=== PATIENT | female | born 1940 | race Asian ===

== ENCOUNTER 2019-08-11 20:07 | Inpatient (IN) | payer MEDICARE, OTHER ==
[~2019-08-11] VITALS: Ht 154.9 cm; Wt 72.1 kg
[2019-08-11 23:10] VITALS: BP 132/98
--- NOTE | 2019-08-11 23:10 | NUR ---
TELE/RN NOTES RECEIVED PT. FROM [facility] VIA [facility]. PT. IS AWAKE, NON-VERBAL OPENS EYES. PT. IS BREATHING EVEN AND UNLABORED ON 3LPM O2 VIA NC. NO SOB, RESPIRATORY DISTRESS OR COMPLAINTS OF PAIN NOTED AT THIS TIME. PT. WITH RIGHT HAND 2ND FINGER 22 GAUGE PERIPHERAL IV PRESENT, PATENT AND INTACT ADMINISTERING TO PT. 1L BOLUS NS FROM [facility]. PT. WITH FAMILY MEMBERS PRESENT AT BEDSIDE. BED LOCKED AND IN LOWEST POSITION, SIDE RAILS UP X3, BED ALARM ON, WILL NOTIFY [facility] CECY SALDANA ABOUT PT. ARRIVAL AND AWAITING ADMITTING ORDERS. WILL CONTINUE TO MONITOR.
[2019-08-12] MEDS ORDERED: HYDROCODONE/APAP 5/325MG 1 EACH TABLET PO PRN
[2019-08-12] MEDS ORDERED: Z GUARD REMEDY 2 OZ OINT TP PRN
[2019-08-12] MEDS ORDERED: ACETAMINOPHEN 325 MG TABLET PO PRN
[2019-08-12] MEDS ORDERED: ZOLPIDEM TARTRATE 5 MG TABLET PO PRN
[2019-08-12] MEDS ORDERED: ONDANSETRON HCL/PF 4 MG/2 ML VIAL IVP PRN
[2019-08-12] MEDS ORDERED: MAGNESIUM HYDROXIDE 30 ML UDC PO PRN
[2019-08-12 00:31] LABS: SERUM AMMONIA 10 umol/L (11-32)
--- NOTE | 2019-08-12 00:40 | NUR ---
TELE/RN NOTES ORDER FOR XRAY ABDOMEN VIEW KUB WITH GASTROFIN ORDERED. OBTAINED TELEPHONE CONSENT BY CATHY (PT. DAUGHTER) WITNESSED BY SAVANA WRIGHT.
[2019-08-12] MEDS ORDERED: IOHEXOL-350 100 ML VIAL IV ONE (01:01)
[2019-08-12] MEDS ORDERED: CT SWABBABLE VALVE TRANS SET 1 EA INFUS.SET MC ONE (01:01)
[2019-08-12] MEDS: IV NS 0.9% 1,000 ML IV PRN ×2 (03:11→17:59)
[2019-08-12] MEDS ORDERED: LEVETIRACETAM (500MG) 500 MG in IV NS 0.9% 100 ML IV SCH (03:30)
[2019-08-12 03:52] LABS: BASOPHILS % (AUTO) 0.1 % (0.0-2.0); EOSINOPHILS % (AUTO) 1.5 % (0.0-6.0); HEMATOCRIT 29 % (33-45); HEMOGLOBIN 9.3 g/dL (11.5-14.8); LYMPHOCYTES # (AUTO) 1.2 /CMM (0.8-4.8); MEAN CORPUSCULAR HGB CONC 32 g/dl (31.0-36.0); MEAN CORPUSCULAR VOLUME 89 fL (82-100); MONOCYTES # (AUTO) 1.1 /CMM (0.1-1.30); MONOCYTES % (AUTO) 10.5 % (2.0-12.0); NEUTROPHILS # (AUTO) 7.7 /CMM (1.8-8.9); NEUTROPHILS % (AUTO) 75.9 % (43.0-81.0); PLATELET COUNT (AUTO) 264 /CMM (150-450); RED BLOOD CELL COUNT(AUTO) 3.29 MIL/uL (4.0-5.2); WHITE BLOOD COUNT (AUTO) 10.2 K/uL (4.3-11.0)
--- NOTE | 2019-08-12 04:00 | NUR ---
TELE/RN NOTES CALLED SOCIAL INSURANCE ADMINISTRATOR TO OBTAIN KEPPRA MEDICATION ORDERED, UNABLE TO GET MEDICATION AT THIS TIME. WILL FOLLOW UP AND ADMINISTER MEDICATION WHEN AVAILABLE. WILL CONTINUE TO MONITOR.
[2019-08-12 04:05] LABS: CHOLESTEROL 166 mg/dL (<200); HDL CHOLESTEROL 54 mg/dL (40-60); LDL 101 mg/dL (0-99); TRIGLYCERIDES 89 mg/dL (30-150)
[2019-08-12 04:06] LABS: BILIRUBIN,DIRECT 0.1 mg/dL (0.0-0.2); BILIRUBIN,TOTAL 0.2 mg/dL (0.2-1.0)
[2019-08-12 04:13] LABS: CALCIUM, SERUM 8.7 mg/dL (8.5-10.1); CARBON DIOXIDE 29 mmol/L (21-32); CHLORIDE 109 mmol/L (98-107); CREATININE 0.5 mg/dL (0.6-1.3); GLUCOSE 109 mg/dL (74-106); PHOSPHORUS 4.2 mg/dL (2.5-4.9); POTASSIUM 3.9 mmol/L (3.5-5.1); SODIUM SERUM 147 mmol/L (136-145); UREA NITROGEN, BLOOD 22 mg/dL (7-18)
[2019-08-12 04:34] LABS: APPEARANCE,URINE CLEAR (CLEAR); BILIRUBIN,URINE NEGATIVE (NEGATIVE); BLOOD, URINE NEGATIVE Ery/uL (NEGATIVE); COLOR,URINE YELLOW (YELLOW); KETONES,URINE NEGATIVE (NEGATIVE); LEUKOCYTE ESTERASE ,URINE NEGATIVE (NEGATIVE); NITRITE, URINE NEGATIVE (NEGATIVE); PROTEIN,URINE NEGATIVE (NEGATIVE); UGLUCOSE NEGATIVE (NEGATIVE); UROBILINOGEN,URINE 0.2 EU/dL (0.2)
[2019-08-12] MEDS ORDERED: LEVETIRACETAM (500MG) 500 MG/5 ML VIAL IV ONE (05:09)
--- NOTE | 2019-08-12 06:22 | NUR ---
TELE/RN NOTES PT. IS LYING IN BED RESTING. PT. IS BREATHING EVEN AND UNLABORED ON 3LPM O2 VIA NC. NO SOB, RESPIRATORY DISTRESS OR COMPLAINTS OF PAIN NOTED AT THIS TIME. PT. WITH RIGHT HAND 2ND FINGER 22 GAUGE PERIPHERAL IV PRESENT, PATENT AND INTACT ADMINISTERING TO PT. 75 ML/HR. PT. WITH EXTERNAL STEEL SPAR OPERATOR PRESENT AND INTACT. CURRENT RHYTHM = SINUS TACHYCARDIA HR 101. ALL PT. NEEDS MET. PT. OFFLOADED, TURNED AND REPOSITIONED Q2H AND NEEDED. ASPIRATION, SAFETY AND SEIZURE PRECAUTIONS IMPLEMENTED AND IN PLACE. BED LOCKED AND IN LOWEST POSITION, SIDE RAILS UP X3, BED ALARM ON. WILL ENDORSE TO DAYSHIFT NURSE FOR CONTINUITY OF CARE.
--- NOTE | 2019-08-12 07:38 | NUR ---
RED HAT OPEN STACK ADMINISTRATOR OPENING NOTE PATIENT IN BED RESTING COMFORTABLY. PATIENT IN NO ACUTE DISTRESS. NO SOB NOTED. PATIENT BREATHING IS EVEN AND UNLABORED. PATIENT ON CARDIAC MONITORING READING SINUS TACHYCARDIA HR 103. HOB IS ELEVATED. SEIZURE PRECAUTIONS IN PLACE. PATIENT BED ALARM IS ON. PATIENT BED IS LOCKED AND IN LOWEST POSITION. CALL LIGHT WITHIN REACH. WILL CONTINUE TO MONITOR.
[2019-08-12 08:00] VITALS: BP 127/75
[2019-08-12] MEDS ORDERED: LACO200T2 PO (09:22)
[2019-08-12] MEDS ORDERED: INSU100V39 SQ (09:22)
[2019-08-12] MEDS ORDERED: METH10TA7 PO (09:22)
[2019-08-12] MEDS ORDERED: BISA10SU61 RC (09:22)
[2019-08-12] MEDS ORDERED: LORA-259 GT (09:22)
[2019-08-12] MEDS ORDERED: MULT-439 PO (09:22)
[2019-08-12] MEDS ORDERED: PHEN100C4 GT ×2 (09:22)
[2019-08-12] MEDS ORDERED: FURO-145 PO (09:22)
[2019-08-12] MEDS ORDERED: CLON0.1T GT (09:22)
[2019-08-12] MEDS ORDERED: MAGN400T26 GT (09:22)
[2019-08-12] MEDS ORDERED: SENN-18 GT (09:22)
[2019-08-12] MEDS ORDERED: ATOR10TA GT (09:22)
[2019-08-12] MEDS ORDERED: LEVE500T20 GT (09:22)
[2019-08-12] MEDS ORDERED: NA P133E RC (09:22)
[2019-08-12] MEDS ORDERED: IPRA0.2S49 IH (09:22)
[2019-08-12] MEDS ORDERED: MAGN400O6 GT (09:22)
[2019-08-12] MEDS ORDERED: ACET-868 PO (09:22)
[2019-08-12] MEDS ORDERED: DOCU-141 GT (09:22)
[2019-08-12] MEDS ORDERED: ONDA4TAB5 GT (09:22)
[2019-08-12] MEDS ORDERED: METO25TA6 GT (09:22)
--- NOTE | 2019-08-12 09:55 | NUR ---
TALENT DEVELOPMENT COORDINATOR NOTE SPOKE WITH DR. PIZANO, ORDERS FOR DVT PUMPS TO BE PLACED.
--- NOTE | 2019-08-12 11:45 | NUR ---
WOUND CARE CONSULT: PT PRESENTS WITH WOUND TO LEFT EAR, LEAKING G TUBE SITE, RT EAR INTACT DEEP TISSUE INJURY AND SACRAL SCARRING, ALL PRESENT ON ADMISSION. RECOMMEND SURGICAL CONSULT. DR WHITMAN NOTIFIED OF CONSULT REQUEST. WILL SEE PRN. DISCUSSED SKIN PROTECTION WITH NURSING STAFF. PT ON TIFFANIE ISOFLEX LOW AIRLOSS BED. WILL SEE PRN. IN AGREEMENT WITH PLAN OF CARE. CURRENT AINSLEY SCORE IS 12. Addendum: 08/12/19 at 1146 by NIKO CARSON WNDNU Amended: Links added.
[2019-08-12] MEDS: CEFTRIAXONE 1 G in IV D5W 50 ML IV SCH (13:08)
--- NOTE | 2019-08-12 13:36 | NUR ---
MS RN NOTE SPOKE WITH DR. PIZANO REGARDING ABNORMAL CT HEAD RESULTS. PER DR. PIZANO CONTACT DR. GOODE FOR CONSULTATION. SPOKE WITH DR. GOODE AND DR. PIZANO REGARDING PATIENT STATUS. PER DR. PIZANO CONTACT NEUROSURGEON AND FOLLOW UP. PER DR. PIZANO WILL CONTINUE HOME MEDS.
--- NOTE | 2019-08-12 13:54 | NUR ---
MS RN NOTE SPOKE WITH DR. ALISSA MAXWELL REGARDING PATIENT STATUS AND TO SPEAK AND FOLLOW UP WITH DR. PIZANO FOR FURTHER PLAN OF CARE.
[2019-08-12] MEDS ORDERED: PHENYTOIN SUSP UDC 100 MG/4 ML UDC GT SCH ×2 (15:00→18:00)
--- NOTE | 2019-08-12 15:33 | NUR ---
MS RN NOTE SPOKE WITH DR. PIZANO REGARDING PATIENT PEG TUBE LEAKING. MD WAS AWARE OF LEAKING PRIOR. PER MD ORDER TO HAVE PATIENT PEG TUBE REMAIN NPO STATUS AND MONITOR. KEEP SEIZURE MEDICATIONS IV ROUTE AT THIS TIME.
--- NOTE | 2019-08-12 15:45 | NUR ---
MS RN NOTE SPOKE WITH DR. PIZANO REGARDING PATIENT GOING TO MRI. PER HARINDER NO NEED TO CONTACT HIM FOR RESULTS, STATED HE WILL FOLLOW UP.
[2019-08-12] MEDS ORDERED: FEE PK DOSING 1 MIN EA MC ONE (15:47)
[2019-08-12 16:00] VITALS: BP 134/74
[2019-08-12] MEDS: HYDROGEL DRESSING 90 GM TUBE TP SCH (16:15)
[2019-08-12] MEDS ORDERED: LACOSAMIDE ORAL SOLN 50 MG/5 ML UDC PO SCH (17:00)
[2019-08-12] MEDS: LEVETIRACETAM (500MG) 500 MG in IV NS 0.9% 100 ML IV SCH (17:08)
[2019-08-12] MEDS: DEXAMETHASONE SOD PHOSPHATE 10 MG/ML VIAL IV SCH (17:10)
[2019-08-12] MEDS ORDERED: GADOTERIDOL 279.3 MG/ML VIAL IV ONE (18:04)
--- NOTE | 2019-08-12 18:40 | NUR ---
MS RN CLOSING NOTE PATIENT IN BED RESTING COMFORTABLY. PATIENT IN NO ACUTE DISTRESS. NO SOB NOTED. PATIENT BREATHING IS EVEN AND UNLABORED. PATIENT PEG TUBE KEPT CLEAN AND DRY. WOUND CARE PERFORMED ORDERED. PATIENT TURNED AND REPOSITIONED Q2H. PATIENT EXTREMITIES OFFLOADED ON PILLOWS. PATIENT KEPT CLEAN AND DRY THROUGHOUT SHIFT. HOB IS ELEVATED. BED ALARM IS ON. PATIENT BED IS LOCKED AND IN LOWEST POSITION. CALL LIGHT WITHIN REACH. WILL ENDORSE CARE TO PM SHIFT FOR RAMIN.
--- NOTE | 2019-08-12 19:07 | NUR ---
MS/RN NOTES RECEIVED PT. LYING IN BED WITH EYES OPEN. PT. IS NON-VERBAL. BREATHING EVEN AND UNLABORED ON 3LPM O2 VIA NC. NO SOB, RESPIRATORY DISTRESS OR S/S OF PAIN NOTED AT THIS TIME. PT. WITH RIGHT HAND 2ND FINGER 22 GAUGE PERIPHERAL IV PRESENT, PATENT AND INTACT ADMINISTERING TO PT. NS @ 75 ML/HR. PT. WITH G-TUBE PRESENT AND INTACT, KEPT CLEAN AND DRY. PT. WITH VALLEJO CATHETER PRESENT, PATENT AND INTACT. SEIZURE AND SAFETY PRECAUTIONS IMPLEMENTED AND IN PLACE. BED LOCKED AND IN LOWEST POSITION, SIDE RAILS UP X3, BED ALARM ON, WILL CONTINUE TO MONITOR.
[2019-08-12 20:00] VITALS: BP 138/85
[2019-08-12] MEDS: LACOSAMIDE 200 MG in IV NS 0.9% 50 ML IV SCH (21:11)
[2019-08-13] MEDS: DEXAMETHASONE SOD PHOSPHATE 10 MG/ML VIAL IV SCH ×4 (00:42→18:52)
--- NOTE | 2019-08-13 06:13 | NUR ---
MS/RN NOTES PT. IS LYING IN BED RESTING. BREATHING EVEN AND UNLABORED ON 3LPM O2 VIA NC. NO SOB, RESPIRATORY DISTRESS OR S/S OF PAIN NOTED AT THIS TIME AND THROUGHOUT SHIFT. NO SEIZURES NOTED THROUGHOUT SHIFT. PT. WITH RIGHT HAND 2ND FINGER 22 GAUGE PERIPHERAL IV PRESENT, PATENT AND INTACT ADMINISTERING TO PT. NS @ 75 ML/HR. PT. WITH G-TUBE PRESENT AND INTACT, KEPT CLEAN AND DRY. PT. WITH VALLEJO CATHETER PRESENT, PATENT AND INTACT. ALL PT. NEEDS MET. PT. OFFLOADED, TURNED AND REPOSITIONED Q2H AND NEEDED. SEIZURE AND SAFETY PRECAUTIONS IMPLEMENTED AND IN PLACE. BED LOCKED AND IN LOWEST POSITION, SIDE RAILS UP X3, BED ALARM ON, WILL ENDORSE TO DAYSHIFT NURSE FOR CONTINUITY OF CARE.
[2019-08-13] MEDS: LEVETIRACETAM (500MG) 500 MG in IV NS 0.9% 100 ML IV SCH ×2 (06:28→18:52)
[2019-08-13 07:39] LABS: BASOPHILS % (AUTO) 0.2 % (0.0-2.0); HEMATOCRIT 24 % (33-45); HEMOGLOBIN 7.9 g/dL (11.5-14.8); LYMPHOCYTES # (AUTO) 0.7 /CMM (0.8-4.8); LYMPHOCYTES % (AUTO) 8.6 % (20.0-44.0); MEAN CORPUSCULAR HGB CONC 32 g/dl (31.0-36.0); MEAN CORPUSCULAR VOLUME 88 fL (82-100); MONOCYTES # (AUTO) 0.2 /CMM (0.1-1.30); NEUTROPHILS # (AUTO) 6.9 /CMM (1.8-8.9); NEUTROPHILS % (AUTO) 88.2 % (43.0-81.0); PLATELET COUNT (AUTO) 221 /CMM (150-450); RED BLOOD CELL COUNT(AUTO) 2.76 MIL/uL (4.0-5.2); WHITE BLOOD COUNT (AUTO) 7.9 K/uL (4.3-11.0)
[2019-08-13 08:00] VITALS: BP 120/68
[2019-08-13 08:03] LABS: CALCIUM, SERUM 8.8 mg/dL (8.5-10.1); CARBON DIOXIDE 25 mmol/L (21-32); CHLORIDE 112 mmol/L (98-107); CREATININE 0.4 mg/dL (0.6-1.3); GLUCOSE 95 mg/dL (74-106); POTASSIUM 3.8 mmol/L (3.5-5.1); SODIUM SERUM 149 mmol/L (136-145); UREA NITROGEN, BLOOD 17 mg/dL (7-18)
[2019-08-13] MEDS: LACOSAMIDE 200 MG in IV NS 0.9% 50 ML IV SCH ×2 (09:53→20:49)
[2019-08-13] MEDS: HYDROGEL DRESSING 90 GM TUBE TP SCH (09:57)
[2019-08-13] MEDS: IV NS 0.9% 1,000 ML IV PRN (11:24)
[2019-08-13] MEDS: CEFTRIAXONE 1 G in IV D5W 50 ML IV SCH (14:10)
[2019-08-13 16:00] VITALS: BP 133/73
--- NOTE | 2019-08-13 18:00 | NUR ---
in requested rn contact dr. agata parmar rn called him and neurosurgeon in and spoke with dtr.consent signed for new ct scan.pt. tolerating ivs and dressing changes.freq. repositioning.
--- NOTE | 2019-08-13 19:30 | NUR ---
MS RN NOTES PATIENT IN BED, EYE OPEN, NON VERBAL. BREATHING EVEN AND UNLABORED ON NC 2L. DISPLAYS NO SIGNS OF ACUTE RESPIRATORY DISTRESS, NO ACUTE PAIN. IV ON RIGHT FINGER #22G, CLEAN DRY AND INTACT. SHOWS NO SIGNS OF INFILTRATION, NO REDNESS. SAFETY PRECAUTIONS IN PLACE. BED IN LOWEST POSITION, LOCKED, AND CALL LIGHT KEPT WITHIN REACH. WILL CONTINUE TO MONITOR.
[2019-08-13 20:00] VITALS: BP 151/75
[2019-08-14] MEDS: DEXAMETHASONE SOD PHOSPHATE 10 MG/ML VIAL IV SCH ×4 (00:51→18:39)
[2019-08-14] MEDS: IV NS 0.9% 1,000 ML IV PRN (04:49)
[2019-08-14] MEDS: LEVETIRACETAM (500MG) 500 MG in IV NS 0.9% 100 ML IV SCH ×2 (05:20→18:56)
--- NOTE | 2019-08-14 06:43 | NUR ---
MS RN NOTES PATIENT IN BED, ASLEEP, NON VERBAL. BREATHING EVEN AND UNLABORED ON NC 2L. DISPLAYS NO SIGNS OF ACUTE RESPIRATORY DISTRESS, NO ACUTE PAIN. IV ON RIGHT FINGER #22G, CLEAN DRY AND INTACT, RUNNING NS AT 75ML/HR . SHOWS NO SIGNS OF INFILTRATION, NO REDNESS. ALL DUE MEDICATIONS GIVEN. SAFETY PRECAUTIONS IN PLACE. BED IN LOWEST POSITION, LOCKED, AND CALL LIGHT KEPT WITHIN REACH. WILL ENDORSE TO ONCOMING NURSE.
[2019-08-14 07:41] LABS: BASOPHILS % (AUTO) 0.1 % (0.0-2.0); HEMATOCRIT 26 % (33-45); HEMOGLOBIN 8.2 g/dL (11.5-14.8); LYMPHOCYTES # (AUTO) 0.6 /CMM (0.8-4.8); LYMPHOCYTES % (AUTO) 7.3 % (20.0-44.0); MEAN CORPUSCULAR HGB CONC 32 g/dl (31.0-36.0); MEAN CORPUSCULAR VOLUME 88 fL (82-100); MONOCYTES # (AUTO) 0.3 /CMM (0.1-1.30); MONOCYTES % (AUTO) 3.5 % (2.0-12.0); NEUTROPHILS # (AUTO) 7.9 /CMM (1.8-8.9); NEUTROPHILS % (AUTO) 89.1 % (43.0-81.0); PLATELET COUNT (AUTO) 283 /CMM (150-450); RED BLOOD CELL COUNT(AUTO) 2.93 MIL/uL (4.0-5.2); WHITE BLOOD COUNT (AUTO) 8.9 K/uL (4.3-11.0)
[2019-08-14 07:49] LABS: CALCIUM, SERUM 8.8 mg/dL (8.5-10.1); CARBON DIOXIDE 23 mmol/L (21-32); CHLORIDE 109 mmol/L (98-107); CREATININE 0.5 mg/dL (0.6-1.3); GLUCOSE 104 mg/dL (74-106); POTASSIUM 3.2 mmol/L (3.5-5.1); SODIUM SERUM 148 mmol/L (136-145); UREA NITROGEN, BLOOD 20 mg/dL (7-18)
[2019-08-14 08:00] VITALS: BP 123/71
--- NOTE | 2019-08-14 08:03 | NUR ---
MS RN OPENING NOTES RECEIVED PATIENT IN BED, ASLEEP. PATIENT ON OXYGEN THERAPY AT 2 LM PER NC. BREATHING IS EVEN AND SYMMETRICAL. NO ACUTE SIGNS OF DISTRESS NOTED. NO SOB AT THIS TIME. RIGHT FINGER IV PRESENT AND INTACT, INFUSING NS AT 75 MLS/HR. SAFETY PRECAUTIONS IN PLACE; BED IN LOW POSITION AND LOCKED, RAILS UP X 2, CALL LIGHT WITHIN REACH. WILL CONTINUE TO MONITOR PATIENT.
[2019-08-14] MEDS: POTASSIUM CL. PREMIX PERIPHER. 50 ML IV SCH ×4 (11:33→23:18)
[2019-08-14] MEDS: LACOSAMIDE 200 MG in IV NS 0.9% 50 ML IV SCH ×2 (11:38→21:42)
--- NOTE | 2019-08-14 13:29 | NUR ---
MS RN NOTES AFTER A FEW ATTEMPTS TO SET UP THE MAINFRAME PROGRAMMER ANALYST PUMP FOR SCHEDULED MEDICATION [facility] WAS CALLED. MONSE SAID OK TO ADMINISTER MEDICATION VIA REGULAR IV PUMP. SHE WILL COME UP LATER TO SET UP THE MAINFRAME PROGRAMMER ANALYST PUMP FOR FUTURE INFUSIONS. AT THIS TIME THE PUMP DID NOT HAVE THE ABILITY TO RUN THIS MEDICATION.
[2019-08-14] MEDS: HYDROGEL DRESSING 90 GM TUBE TP SCH (13:30)
[2019-08-14 16:00] VITALS: BP 138/84
--- NOTE | 2019-08-14 16:18 | NUR ---
MS RN NOTES RECEIVED ORDER FROM DR. MAXWELL FOR MIDLINE INSERTION AFTER A COUPLE UNSUCCESSFUL ATTEMPTS OF AC IV INSERTION.
[2019-08-14] MEDS: CEFTRIAXONE 1 G in IV D5W 50 ML IV SCH (18:09)
--- NOTE | 2019-08-14 18:34 | NUR ---
MS RN NOTES DUE TO ONE IV LINE ONLY, MANY IV BAGS AND THE LOSS OF POTENCY OF THE LINE ROCEPHIN WAS ADMINISTERED AT 1800 INSTEAD OF 1400. PHARMACY AWARE. MONSE SAID IT IS OK TO ADMINISTER AT 1800. NEW CENTRAL LINE INSERTED PER MD ORDER AND IS NOW BEING USE FOR FOLLOWING INFUSIONS.
--- NOTE | 2019-08-14 19:15 | NUR ---
MS RN NOTES RECEIVED PT IN BED AWAKE AND NON-VERBAL. PATIENT ON OXYGEN THERAPY AT 3L VIA NC. RESPIRATIONS EVEN AND UNLABORED WITH NO S/S OF ACUTE DISTRESS OR SOB NOTED. PT WITH ARISTEO MIDLINE INFUSING NS AT 75 MLS/HR. PT NOTED WITH G-TUBE LEAKING, DRESSING INTACT AT THIS TIME. SAFETY PRECAUTIONS IN PLACE; BED IN LOW POSITION AND LOCKED, RAILS UP X 2 AND PADDED FOR SEIZURE PRECAUTION. CALL LIGHT WITHIN REACH. WILL CONTINUE TO MONITOR.
--- NOTE | 2019-08-14 19:19 | NUR ---
MS RN CLOSING NOTES PATIENT IN BED, AWAKE, NON-VERBAL. PATIENT ON OXYGEN THERAPY AT 2 LM PER NC. BREATHING IS EVEN AND SYMMETRICAL. NO ACUTE SIGNS OF DISTRESS NOTED. NO SOB AT THIS TIME. ARISTEO MIDLINE PRESENT AND INTACT, INFUSING NS AT 75 MLS/HR. G-TUBE LEAKING BUT DRESSING CHANGED, CLEAN AND INTACT. SAFETY PRECAUTIONS IN PLACE; BED IN LOW POSITION AND LOCKED, RAILS UP X 2 AND PADDED FOR SEIZURE PRECAUTION. CALL LIGHT WITHIN REACH. WILL ENDORSE TO FOREX TRADER NURSE.
[2019-08-14 20:00] VITALS: BP 158/87
[2019-08-14] MEDS ORDERED: CT SWABBABLE VALVE TRANS SET 1 EA INFUS.SET MC ONE (20:50)
[2019-08-14] MEDS ORDERED: IOHEXOL-350 100 ML VIAL IV ONE (20:50)
[2019-08-14] MEDS ORDERED: IV NS 0.9% 250 ML IV ONE (20:50)
--- NOTE | 2019-08-14 21:00 | NUR ---
MS RN NOTES PT LEFT UNIT WITH RADIOLOGY FOR CT ABDOMEN AND CT HEAD.
--- NOTE | 2019-08-14 21:20 | NUR ---
MS RN NOTES PT ARRIVED BACK ON UNIT FROM RADIOLOGY.
[2019-08-15] MEDS: DEXAMETHASONE SOD PHOSPHATE 10 MG/ML VIAL IV SCH ×5 (00:33→23:16)
[2019-08-15] MEDS: IV NS 0.9% 1,000 ML IV PRN ×2 (03:32→21:08)
[2019-08-15] MEDS: LEVETIRACETAM (500MG) 500 MG in IV NS 0.9% 100 ML IV SCH ×2 (06:27→17:24)
--- NOTE | 2019-08-15 06:55 | NUR ---
MS RN NOTES PT IN BED AWAKE AND NON-VERBAL. PATIENT ON OXYGEN THERAPY AT 3L VIA NC. RESPIRATIONS EVEN AND UNLABORED WITH NO S/S OF ACUTE DISTRESS OR SOB NOTED. PT WITH ARISTEO MIDLINE INFUSING NS AT 75 MLS/HR. PT TURNED Q2 HOURS THROUGHOUT SHIFT. PT KEPT CLEAN, DRY, AND COMFORTABLE. PT NOTED WITH G-TUBE LEAKING, DRESSING INTACT AT THIS TIME. SAFETY PRECAUTIONS IN PLACE; BED IN LOW POSITION AND LOCKED, RAILS UP X 2 AND PADDED FOR SEIZURE PRECAUTION. CALL LIGHT WITHIN REACH. WILL ENDORSE TO ONCOMING NURSE FOR RAMIN.
--- NOTE | 2019-08-15 07:40 | NUR ---
MS RN OPENING NOTES RECEIVED PATIENT IN BED, ASLEEP. ARNOL O2 THERAPY AT 3LPM. BREATHING IS EVEN AND SYMMETRICAL. NO ACUTE SIGNS OF DISTRESS NOTED. NO SOB AT THIS TIME. ARISTEO MIDLINE INTACT INFUSING NS AT 75 MLS/HR. G-TUBE LEAKING NOTED BUT DRESSING IS CLEAN AND INTACT. VALLEJO CATH PRESENT DRAINING CLEAR YELLOW URINE. SAFETY PRECAUTIONS IN PLACE; BED IN LOW POSITION AND LOCKED, RAILS UP X 2 AND PADDED FOR SEIZURE PRECAUTION, CALL LIGHT WITHIN REACH. WILL CONTINUE TO MONITOR PATIENT.
[2019-08-15 08:00] VITALS: BP 156/94
[2019-08-15] MEDS: LACOSAMIDE 200 MG in IV NS 0.9% 50 ML IV SCH ×2 (09:30→21:30)
[2019-08-15] MEDS: HYDROGEL DRESSING 90 GM TUBE TP SCH (09:47)
[2019-08-15 15:00] LABS: BASOPHILS % (AUTO) 0.2 % (0.0-2.0); HEMATOCRIT 27 % (33-45); HEMOGLOBIN 8.5 g/dL (11.5-14.8); LYMPHOCYTES # (AUTO) 0.5 /CMM (0.8-4.8); LYMPHOCYTES % (AUTO) 5.1 % (20.0-44.0); MEAN CORPUSCULAR HGB CONC 32 g/dl (31.0-36.0); MEAN CORPUSCULAR VOLUME 87 fL (82-100); MONOCYTES # (AUTO) 0.6 /CMM (0.1-1.30); MONOCYTES % (AUTO) 5.4 % (2.0-12.0); NEUTROPHILS # (AUTO) 9.1 /CMM (1.8-8.9); NEUTROPHILS % (AUTO) 89.3 % (43.0-81.0); PLATELET COUNT (AUTO) 283 /CMM (150-450); RED BLOOD CELL COUNT(AUTO) 3.04 MIL/uL (4.0-5.2); WHITE BLOOD COUNT (AUTO) 10.2 K/uL (4.3-11.0)
[2019-08-15 15:13] LABS: CALCIUM, SERUM 8.9 mg/dL (8.5-10.1); CARBON DIOXIDE 24 mmol/L (21-32); CHLORIDE 107 mmol/L (98-107); CREATININE 0.4 mg/dL (0.6-1.3); GLUCOSE 93 mg/dL (74-106); POTASSIUM 3.1 mmol/L (3.5-5.1); SODIUM SERUM 147 mmol/L (136-145); UREA NITROGEN, BLOOD 13 mg/dL (7-18)
[2019-08-15] MEDS: CEFTRIAXONE 1 G in IV D5W 50 ML IV SCH (15:13)
[2019-08-15 16:00] VITALS: BP 144/91
--- NOTE | 2019-08-15 18:44 | NUR ---
MS RN NOTES PATIENT HAD SECRETION SOUNDS AND ORAL SUCTION WAS PERFORMED. SUCTION TUBE IS AT THE BEDSIDE FOR PRN USE.
--- NOTE | 2019-08-15 18:47 | NUR ---
MS RN CLOSING NOTES RECEIVED IN BED, ASLEEP. PATIENT ON O2 THERAPY AT 3LPM. BREATHING IS EVEN AND SYMMETRICAL. NO ACUTE SIGNS OF DISTRESS NOTED. NO SOB AT THIS TIME. ARISTEO MIDLINE INTACT INFUSING NS AT 75 MLS/HR. G-TUBE LEAKING IS LESS DURING THE DAY. DRESSING IS CLEAN AND INTACT. VALLEJO CATH PRESENT DRAINING CLEAR YELLOW URINE. ALL NEEDS ATTENDED TO. SAFETY PRECAUTIONS IN PLACE; BED IN LOW POSITION AND LOCKED, RAILS UP X 2 AND PADDED FOR SEIZURE PRECAUTION, CALL LIGHT WITHIN REACH. WILL ENDORSE TO CLINICAL TRIAL HEAD NURSE.
--- NOTE | 2019-08-15 19:30 | NUR ---
MS RN OPENING NOTES PATIENT ASLEEP IN BED UPON ARRIVAL. PATIENT NON-VERBAL BUT IS ABLE TO OPEN EYES. ON 3L NC. NO S/S OF ACUTE RESPIRATORY DISTRESS. MIDLINE PRESENT ON RIGHT UPPER ARM, INTACT & PATENT WITH NS RUNNING AT 75 ML/HR. G-TUBE PRESENT, DRESSING DRY & INTACT. VALLEJO CATH PRESENT WITH CLEAR & YELLOW URINE. BED LOCKED, SIDE RAILS X2 AND PADDED FOR SEIZURE PRECAUTION, CALL LIGHT WITHIN REACH. WILL CONTINUE TO MONITOR.
[2019-08-15 20:00] VITALS: BP 140/90
[2019-08-15] MEDS ORDERED: KEY,NONCONTROL,TO KEEP IN PYXI 1 EA MC ONE ×2 (21:29→23:07)
[2019-08-15] MEDS ORDERED: POTASSIUM CHLORIDE 10 MEQ/50 ML PREMIXED IVPB FOR PERIPHERAL LINE IV ONE (22:00)
[2019-08-15] MEDS: POTASSIUM CL. PREMIX PERIPHER. 50 ML IV SCH (23:23)
[2019-08-16] MEDS: POTASSIUM CL. PREMIX PERIPHER. 50 ML IV SCH (01:00)
[2019-08-16] MEDS: DEXAMETHASONE SOD PHOSPHATE 10 MG/ML VIAL IV SCH ×4 (05:10→23:28)
[2019-08-16] MEDS: LEVETIRACETAM (500MG) 500 MG in IV NS 0.9% 100 ML IV SCH ×2 (06:40→18:28)
--- NOTE | 2019-08-16 06:50 | NUR ---
MS RN CLOSING NOTES PATIENT ASLEEP IN BED. NON-VERBAL, BUT IS ABLE TO OPEN EYES. ON 3L NC. NO S/S OF ACUTE RESPIRATORY DISTRESS. G-TUBE PRESENT AND COVERED WITH DRESSING. IV PRESENT ON RIGHT FINGER, SIZE 22, HEP LOCK & MIDLINE ON RIGHT UPPER ARM WITH KEPPRA RUNNING AT 210 MLS/HR. BED LOCKED, SIDE RAILS X3 PADDED FOR SEIZURE PRECAUTION, CALL LIGHT WITHIN REACH. WILL ENDORSE TO DAY SHIFT NURSE TO FOLLOW PLAN OF CARE.
[2019-08-16 07:48] LABS: BASOPHILS % (AUTO) 0.1 % (0.0-2.0); HEMATOCRIT 30 % (33-45); HEMOGLOBIN 9.3 g/dL (11.5-14.8); LYMPHOCYTES # (AUTO) 0.5 /CMM (0.8-4.8); LYMPHOCYTES % (AUTO) 2.5 % (20.0-44.0); MEAN CORPUSCULAR HGB CONC 32 g/dl (31.0-36.0); MEAN CORPUSCULAR VOLUME 88 fL (82-100); MONOCYTES # (AUTO) 0.9 /CMM (0.1-1.30); MONOCYTES % (AUTO) 4.7 % (2.0-12.0); NEUTROPHILS # (AUTO) 18.4 /CMM (1.8-8.9); NEUTROPHILS % (AUTO) 92.7 % (43.0-81.0); PLATELET COUNT (AUTO) 311 /CMM (150-450); RED BLOOD CELL COUNT(AUTO) 3.38 MIL/uL (4.0-5.2); WHITE BLOOD COUNT (AUTO) 19.9 K/uL (4.3-11.0)
[2019-08-16 08:00] VITALS: BP 146/87
[2019-08-16 09:03] LABS: CALCIUM, SERUM 8.8 mg/dL (8.5-10.1); CARBON DIOXIDE 19 mmol/L (21-32); CHLORIDE 105 mmol/L (98-107); CREATININE 0.5 mg/dL (0.6-1.3); GLUCOSE 89 mg/dL (74-106); MAGNESIUM 1.6 mg/dL (1.8-2.4); PHOSPHORUS 2.9 mg/dL (2.5-4.9); POTASSIUM 3.6 mmol/L (3.5-5.1); SODIUM SERUM 144 mmol/L (136-145); UREA NITROGEN, BLOOD 12 mg/dL (7-18)
[2019-08-16] MEDS: LACOSAMIDE 200 MG in IV NS 0.9% 50 ML IV SCH ×2 (09:38→21:01)
[2019-08-16] MEDS ORDERED: KEY,NONCONTROL,TO KEEP IN PYXI 1 EA MC ONE ×5 (09:52→20:16)
[2019-08-16 10:39] LABS: BAND % (MANUAL) 7 % (0.0-5.0); LYMPHOCYTES % (MANUAL) 3 % (16-48); MONOCYTES % (MANUAL) 6 % (0-11.0); MYELOCYTES % 1 % (0-0); NEUTROPHILS % (MANUAL) 83 (42-76)
[2019-08-16] MEDS: Magnesium 1GM/D5W 100ML PREMIX 100 ML IV SCH ×2 (13:31→15:24)
[2019-08-16] MEDS: HYDROGEL DRESSING 90 GM TUBE TP SCH (15:23)
[2019-08-16] MEDS: IV NS 0.9% 1,000 ML IV PRN (15:30)
[2019-08-16 16:00] VITALS: BP 132/82
--- NOTE | 2019-08-16 18:30 | NUR ---
abd. dressing mostly dry and intact.chg. to [facility] drsg.dr. wilks texted with dtr's # to call her. dr. parmar calling in to f/up on need for records of abd. scan and liver bx from other facility.mg replacement iv.
--- NOTE | 2019-08-16 19:00 | NUR ---
MS/RN OPENING NOTES: RECEIVED PATIENT ASLEEP IN BED UPON ARRIVAL. PATIENT IS NON-VERBAL BUT IS ABLE TO OPEN EYES. ON 3L NC. NO S/S OF ACUTE RESPIRATORY DISTRESS. MIDLINE PRESENT ON RIGHT UPPER ARM, INTACT & PATENT WITH NS RUNNING AT 75 ML/HR. G-TUBE PRESENT, DRESSING IS DRY & INTACT UPON INSPECTION. VALLEJO CATH PRESENT WITH CLEAR & YELLOW URINE. BED LOCKED, SIDE RAILS X2 AND PADDED FOR SEIZURE PRECAUTION, CALL LIGHT WITHIN REACH. WILL CONTINUE TO MONITORING PATIENT ACCORDINGLY.
[2019-08-16 20:00] VITALS: BP 144/79
--- NOTE | 2019-08-17 02:00 | NUR ---
MS/RN NOTES: GTUBE SITE PRESENT, HAS A FOUL SMELL UPON ASSESSMENT, WITH MILD DRAINAGE. DRESSING CHANGED WITH WITH GAUZE AND ABD PADS. PATIENT IS AWAKE, RESPONDS TO VERBAL STIMULI BY OPENING EYES. PATIENT IS STABLE. WILL CONTINUE MONITORING PATIENT ACCORDINGLY.
[2019-08-17] MEDS: IV NS 0.9% 1,000 ML IV PRN (05:13)
[2019-08-17] MEDS: LEVETIRACETAM (500MG) 500 MG in IV NS 0.9% 100 ML IV SCH ×2 (05:14→18:03)
[2019-08-17] MEDS: DEXAMETHASONE SOD PHOSPHATE 10 MG/ML VIAL IV SCH ×3 (05:14→18:03)
--- NOTE | 2019-08-17 06:41 | NUR ---
MS/RN CLOSING NOTES: PATIENT RESTING IN BED, WITH EYES OPEN. PATIENT IS NON-VERBAL. ON 3L OF NC OXYGEN. NO SOB NOTED. NO S/S OF ACUTE RESPIRATORY DISTRESS. MIDLINE PRESENT ON RIGHT UPPER ARM, INTACT & PATENT WITH NS RUNNING AT 75 ML/HR. G-TUBE PRESENT, DRESSING IS DRY & INTACT. VALLEJO CATH PRESENT WITH CLEAR & YELLOW URINE. TOTAL OUTPUT OF 600ML. ALL DUE MEDICATIONS GIVEN ORDERED, ALL NEEDS MET AND PROVIDED AT THIS TIME. KEPT WARM AND COMFORTABLE THROUGHOUT THE SHIFT. SAFETY MEASURES KEPT IN PLACE, BED IN LOW AND LOCKED POSITION WITH SIDE RAILS UP X2. CALL LIGHT WITH IN EASY REACH. WILL ENDORSE TO DAY SHIFT NURSE FOR RAMIN.
--- NOTE | 2019-08-17 07:00 | NUR ---
MS/RN Opening Note Received pt in bed comfortably, pt awake, able to responds all stimuli, does no appears pain or any discomfort. Skin is warm to touch, clean/dry, intact IV/mid line site. Respiratory even and unlabored, kept lower position of bed with elevated HOB. Call light with in reach, will continue to monitor.
[2019-08-17 08:00] VITALS: BP 139/83
[2019-08-17 08:07] LABS: HEMATOCRIT 26 % (33-45); HEMOGLOBIN 8.2 g/dL (11.5-14.8); LYMPHOCYTES # (AUTO) 0.6 /CMM (0.8-4.8); MEAN CORPUSCULAR HGB CONC 32 g/dl (31.0-36.0); MEAN CORPUSCULAR VOLUME 87 fL (82-100); MONOCYTES # (AUTO) 0.4 /CMM (0.1-1.30); MONOCYTES % (AUTO) 2.8 % (2.0-12.0); NEUTROPHILS # (AUTO) 14.2 /CMM (1.8-8.9); NEUTROPHILS % (AUTO) 93.2 % (43.0-81.0); PLATELET COUNT (AUTO) 218 /CMM (150-450); RED BLOOD CELL COUNT(AUTO) 2.99 MIL/uL (4.0-5.2); WHITE BLOOD COUNT (AUTO) 15.3 K/uL (4.3-11.0)
[2019-08-17] MEDS ORDERED: KEY,NONCONTROL,TO KEEP IN PYXI 1 EA MC ONE ×3 (08:23→20:58)
[2019-08-17 08:24] LABS: CALCIUM, SERUM 8.5 mg/dL (8.5-10.1); CARBON DIOXIDE 23 mmol/L (21-32); CHLORIDE 108 mmol/L (98-107); CREATININE 0.4 mg/dL (0.6-1.3); GLUCOSE 126 mg/dL (74-106); POTASSIUM 3.2 mmol/L (3.5-5.1); SODIUM SERUM 146 mmol/L (136-145); UREA NITROGEN, BLOOD 15 mg/dL (7-18)
[2019-08-17] MEDS: HYDROGEL DRESSING 90 GM TUBE TP SCH (08:29)
[2019-08-17] MEDS: LACOSAMIDE 200 MG in IV NS 0.9% 50 ML IV SCH ×2 (09:16→20:56)
[2019-08-17] MEDS ORDERED: POTASSIUM CL. PREMIX PERIPHER. 50 ML IV SCH (11:00)
--- NOTE | 2019-08-17 13:41 | NUR ---
Faxed over to Dr. Greenwood/[phone] abd and liver result and other facing.
[2019-08-17] MEDS ORDERED: JEVITY 1.2 CAL 1,000 ML BOTTLE GT PRN (14:00)
[2019-08-17 16:00] VITALS: BP 139/81
[2019-08-17] MEDS ORDERED: POTASSIUM CHLORIDE 10 MEQ/50 ML PREMIXED IVPB FOR PERIPHERAL LINE IV ONE ×2 (16:30→17:30)
--- NOTE | 2019-08-17 18:30 | NUR ---
MS/RN Closing note Pt in bed comfortably, no appears pain or discomfort. Skin is warm to touch, clean/dry and intact mid line dressing. Respiratory even and un labored. Daughter/Courtney decided change code status from DNI to DNR, Dr. Escobar aware and agrees. Received Vimpat from pharmacy, will hand on to senior loan officer.
[2019-08-17] MEDS ORDERED: METOCLOPRAMIDE HCL 10 MG/2 ML VIAL IV PRN (19:00)
[2019-08-17 20:00] VITALS: BP_SYST 126; BP_SYST 140; BP_DIAS 66; BP_DIAS 77
--- NOTE | 2019-08-17 20:00 | NUR ---
MS/RN OPENING NOTES RECEIVED PATIENT, HOB ELEVATED, OPENS EYES, PATIENT ON OXYGEN VIA NC AT 3LITER, RESPIRATIONS EVEN AND UNLABORED. ABDOMEN WITH GTUBE, SITE WITH REDNESS, LEAKING AND WITH BLOOD..PATIENT TO HOLD GTUBE FEEDING AT THIS TIME. ON IV MEDICATION FOR SEIZURE VIMPAT AT CONTROLLED WITH MANAGER WELLNESS PUMP WITNESSED AND VERIFIED BY ANOTHER RN JORDAN AT START OF ADMINISTRATION. VALLEJO DRAINING YELLOW COLORED URINE AT THE MODERATE AMOUNT. , IV NS AT 75 ML/GHR. MONITOIRNG FOR ANY CHANGES.BED LOCKED
--- NOTE | 2019-08-17 22:25 | NUR ---
MS/RN NOTED YENI MAXWELL AT BEDSIDE, DISCUSSED CARE INFORMED TO HOLD FEEDING IT IS LEAKING AND STILL BLEEDING.FOLLOW UP ON CT FROM RECORD FROM OTHER HOSPITAL
[2019-08-18] MEDS: DEXAMETHASONE SOD PHOSPHATE 10 MG/ML VIAL IV SCH ×4 (00:49→18:32)
--- NOTE | 2019-08-18 04:19 | NUR ---
MS/RN NOTES DAUGHTER WAS CONTACTED REGARDING STATUS OF PATIENT AND GTUBE SITE UNABLE TO USE FOR FEEDING, PER MD ORDER OF NGT PLACED. ALSO PER NEURO MD ALISSA TO OBTAIN RECORD FROM PREVIOUS HOSPITALIZATION PER DAUGHTER LAST RECORDER FROM LIVER BIOPSY WAS AT [facility] FROM JUN 18 TO JUN 6TO FOLLOW UP WITH AM SHIFT TO OBTAIN RECORD FROM MEDICAL RECORD.
[2019-08-18] MEDS: LEVETIRACETAM (500MG) 500 MG in IV NS 0.9% 100 ML IV SCH ×2 (06:10→18:29)
--- NOTE | 2019-08-18 06:43 | NUR ---
ms/rn notes PATIENT DAUGHTER REQUESTED TO HOLD NGT PLACEMENT FOR FEEDING AND TO WAIT FOR GI CONSULT TO DETERMINE PLAN, WILL UPDATE RECORD TO OBTAIN AT [facility] FOR PREVIOUS LIVER BIOPSY LAST MAY AND 2018.
--- NOTE | 2019-08-18 07:40 | NUR ---
ms/rn notes ALL NEEDS ATTENDED. ENDORSED TO AM RN FOR RAMIN.
[2019-08-18 08:00] VITALS: BP 153/80
[2019-08-18 08:37] LABS: CALCIUM, SERUM 8.4 mg/dL (8.5-10.1); CARBON DIOXIDE 23 mmol/L (21-32); CHLORIDE 111 mmol/L (98-107); CREATININE 0.5 mg/dL (0.6-1.3); GLUCOSE 125 mg/dL (74-106); POTASSIUM 3.6 mmol/L (3.5-5.1); SODIUM SERUM 148 mmol/L (136-145); UREA NITROGEN, BLOOD 19 mg/dL (7-18)
--- NOTE | 2019-08-18 09:00 | NUR ---
MS RN TESS PIZANO SPOKE TO DAUGHTER ELIZABETH FOR PLAN OF CARE, DAUGHTER AGREED FOR NG TUBE TEMPORALLY AND HAVE GI CONSULT. ORDERS NOTED AND CARRIED OUT.
[2019-08-18] MEDS: LACOSAMIDE 200 MG in IV NS 0.9% 50 ML IV SCH ×2 (09:38→22:29)
[2019-08-18] MEDS: HYDROGEL DRESSING 90 GM TUBE TP SCH (09:39)
[2019-08-18] MEDS: IV NS 0.9% 1,000 ML IV PRN (09:49)
--- NOTE | 2019-08-18 15:00 | NUR ---
MS RN NOTES PATIENT STARTED ON FEEDING FROM NG TUBE. NG TUBE PLACEMENT CONFIRMED WITH CHEST X-RAY.
[2019-08-18 16:00] VITALS: BP 164/89
--- NOTE | 2019-08-18 17:30 | NUR ---
MS RN NOTES PATIENT NOTED WITH LEAKING GT SITE. DR. PIZANO PAGED WAITING FOR CALL BACK.
--- NOTE | 2019-08-18 17:39 | NUR ---
MS RN NOTES PATIENTS DAUGHTER AT BEDSIDE REQUESTS FOR NG TUBED TO BE REMOVED SINCE IT IS LEAKING. WAITING CALL BACK FROM DR. PIZANO.
--- NOTE | 2019-08-18 17:45 | NUR ---
MS RN NOTES CALL RECEIVED FROM DR. PIZANO INFORMED THAT GT TUBE SITE IS LEAKING ORDERS TO REMOVE NG TUBE KEEP NPO WAITING FOR GI CONSULT.
--- NOTE | 2019-08-18 19:07 | NUR ---
MS RN NOTES PATIENT IN BED SLEEPING FAMILY AT BEDSIDE. PATIENT NONE VERBAL ONLY ABLE TO OPEN EYES. NO SOB OR ACUTE DISTRESS NOTED. MIDLINE INTACT PATIENT. ALL DUE MEDICATIONS ADMINISTERED. ALL NEEDS MET. WILL ENDORSE TO PM SHIFT RAMIN.
--- NOTE | 2019-08-18 19:38 | NUR ---
RN NOTES RECEIVED PATIENT OPENS EYES, NO SIGNS OF ACUTE DISTRESS NOTED, MIDLINE INTACT AND PATEN. SAFETY MEASURES IN PLACE, ASPIRATION PRECAUTION EMPHASIZED, REPOSITIONED FOR COMFORT. CALL LIGHT WITHIN EASY REACH, ALL NEEDS ATTENDED WILL CONTINUE TO MONITOR ACCORDINGLY.
[2019-08-18 20:00] VITALS: BP 100/55
--- NOTE | 2019-08-18 22:55 | NUR ---
RN NOTES RECEIVED PHONE CALL FROM PATIENT'S DAUGHTER CATHY MORENO ). CATHY WANTS TO STOP IV FLUID INFUSION, NO BLOOD DRAW FOR LABS, KEEP THE VALLEJO CATHETER, AND CONTINUE SEIZURE MEDICATION. PATIENT'S DAUGHTER IS ALSO CONSIDERING HOSPICE CARE. NOTED. CATHY WILL COME BY TOMORROW TO DISCUSS THE CONCERN WITH ATTENDING PHYSICIAN AND AUTOMOTIVE SALES MANAGER. INFORMED CHARGE NURSE ARACELI, WILL DOCUMENT AND ENDORSED TO AM NURSE FOR CONTINUITY OF CARE.
[2019-08-19] MEDS: DEXAMETHASONE SOD PHOSPHATE 10 MG/ML VIAL IV SCH ×4 (00:18→18:07)
[2019-08-19] MEDS: LEVETIRACETAM (500MG) 500 MG in IV NS 0.9% 100 ML IV SCH ×2 (05:12→18:08)
--- NOTE | 2019-08-19 06:56 | NUR ---
RN NOTES ALL NEEDS ATTENDED AND MET, ABLE TO REST AND SLEPT AT INTERVALS, KEPT CLEAN DRY AND COMFORTABLE. NO SIGNS OF ACUTE RESPIRATORY / CARDIAC DISTRESS NOTED, SAFETY MEASURES IN PLACED, ASPIRATION PRECAUTION EMPHASIZED. MAINTAINED ON NPO, SEEN BY DR CHAMBERLAIN ( GI CONSULT ) INFORMED HIM REGARDING DAUGHTER'S WISHES AND CONSIDERING HOSPICE CARE. PATIENT'S DAUGHTER DOESN'T WANT TO CONTINUE IV FLUIDS, NO BLOOD DRAW FOR LAB, HOWEVER MAY CONTINUE TO GIVE SEIZURE MEDICATIONS, AND KEEP VALLEJO CATHETER. WILL ENDORSE TO AM NURSE FOR CONTINUITY OF CARE.
[2019-08-19 08:00] VITALS: BP 160/91
--- NOTE | 2019-08-19 08:00 | NUR ---
MS RN NOTES PATIENT IN BED RESTING NONE VERBAL, OPENS EYES ONLY. MIDLINE INTACT PATENT. WILL CONTINUE TO MONITOR.
[2019-08-19] MEDS: LACOSAMIDE 200 MG in IV NS 0.9% 50 ML IV SCH ×2 (09:56→21:25)
[2019-08-19] MEDS: HYDROGEL DRESSING 90 GM TUBE TP SCH (09:57)
[2019-08-19 16:00] VITALS: BP 154/95
--- NOTE | 2019-08-19 18:44 | NUR ---
MS RN NOTES PATIENT IN BED RESTING. ALL DUE MEDICATIONS ADMINISTERED. ALL NEEDS MET. NO ACUTE CHANGED NOTED DURING SHIFT. PATIENTS DAUGHTER REQUESTS NO AGGRESSIVE TREATMENT ONLY CONTINUE SEIZURE MEDICATIONS . NO IV HYDRATION NO BLOOD DRAWS. BI RYDER.
--- NOTE | 2019-08-19 20:00 | NUR ---
ms nirav initial notes received report from am nurse Aparna and checked the patient, she's in bed lying resting with eyes closed but arouse to stimuli and open her eyes. right upper arm midline patent and intact. g-tube clamped at this time. no signs of any acute distress noted. Hathaway to gravity and kept her warm and comfortable at all times. will continue monitoring.
[2019-08-19] MEDS ORDERED: KEY,NONCONTROL,TO KEEP IN PYXI 1 EA MC ONE (20:43)
--- NOTE | 2019-08-20 | NUR ---
MS MICHELE NOTES PT SLEEPING COMFORTABLY IN BED WITHOUT ANY ACUTE DISTRESS NOTED. KEPT HER WARM AND COMFORTABLE AT ALL TIMES. WILL CONTINUE MONITORING.
[2019-08-20] MEDS: DEXAMETHASONE SOD PHOSPHATE 10 MG/ML VIAL IV SCH ×3 (00:01→12:21)
[2019-08-20] MEDS: LEVETIRACETAM (500MG) 500 MG in IV NS 0.9% 100 ML IV SCH (05:04)
--- NOTE | 2019-08-20 07:36 | NUR ---
MS RN OPENING NOTES: RECEIVED PATIENT ASLEEP IN BED, AWAKENS TO TACTILE STIMULI. PT IS NON VERBAL AND OPEN HER EYES WHEN TOUCH. PT IS DNR/DNION 02 VIA N/C @ 2LPM, TOLERATING WELL WITH NO SOB NOTED. ARISTEO MIDLINE INTACT AND PATENT. PT WITH G-TUBE IN PLACE BUT CLAMPED. VALLEJO IN PLACE AND PATENT WITH SMALL AMOUNT OF CLEAR YELLOW URINE OUTPUT NOTED. SAFETY MEASURES IN PLACE: BED IS IN LOW AND LOCKED POSITION WITH SIDE RAILS UP X2. CALL LIGHT WITH IN EASY REACH. WILL CONTINUE TO MONITOR PATIENT ACCORDINGLY.
--- NOTE | 2019-08-20 07:39 | NUR ---
MS DECATOR OPERATOR CLOSING NOTES PT RESTING COMFORTABLY IN BED WITHOUT ANY ACUTE DISTRESS NOTED. RESPIRATION EVEN AND NO-LABORED. ALL DUE MEDS GIVEN AND ALL NEEDS MET. VALLEJO DRAINING WELL . KEPT HER WARM AND COMFORTABLE AT ALL TIMES. STABLE JOSE THE NIGHT . ENDORSE TO AM NURSE FOR CONTINUITY OF CARE.
[2019-08-20 08:00] VITALS: BP 167/87
[2019-08-20] MEDS ORDERED: KEY,NONCONTROL,TO KEEP IN PYXI 1 EA MC ONE (09:05)
[2019-08-20] MEDS: HYDROGEL DRESSING 90 GM TUBE TP SCH (09:17)
[2019-08-20] MEDS: LACOSAMIDE 200 MG in IV NS 0.9% 50 ML IV SCH (09:54)
--- NOTE | 2019-08-20 16:40 | NUR ---
RN DISCHARGED NOTES PT DISCHARGED TO BOARD AND CARE FOR HOSPICE COMFORT CARE. PT IS NON-VERBAL AND RESPONSIVE TO TACTILE STIMULI. V/S TAKEN AND RECORDED. AND DAUGHTER AT BEDSIDE AND REFUSED PHOTOS OF SKIN ISSUES PRIOR TO DISCHARGE. ARISTEO MIDLINE REMOVED WITH NO ACTIVE BLEEDING NOTED. VALLEJO KEPT IN PLACE PER REQUEST FROM DAUGHTER AND BOARD AND CARE STAFFF DISCHARGED INSTRUCTIONS GIVEN TO DAUGHTER AND VERBALIZED UNDERSTANDING. DISCHARGE PAPER SIGNED BY DAUGHTER. PT LEFT UNIT VIA [email or web address] [phone] ACCOMPANIED BY 2 MEDICAL TRANSPORT STAFF. DAUGHTER AND PT'S WILL FOLLOW TRANSPORT MEDICAL VAN. MD AND CHARGE NURSE AWARE OF DISCHARGE.
== END 2019-08-20 17:00 | disposition hospice, home (50) | DRG 853 ==
LOC: TELE 23:01 → MED 08-12 10:29
PROVIDERS: ADMIT Nurse Practitioner Acute Care; ATTEND Nurse Practitioner Acute Care
PROC: 0JB70ZZ Excision of Back Subcutaneous Tissue and Fascia, Open Approach (ICD-10-PCS; principal; 2019-08-12)
PROC: 05H933Z Insertion of Infusion Device into Right Brachial Vein, Percutaneous Approach (ICD-10-PCS; 2019-08-14)
DX: A41.9 Sepsis, unspecified organism (principal); L89.153 Pressure ulcer of sacral region, stage 3; G93.41 Metabolic encephalopathy; R53.2 Functional quadriplegia; G93.6 Cerebral edema; D68.59 Other primary thrombophilia; N39.0 Urinary tract infection, site not specified; E87.2 Acidosis; G91.9 Hydrocephalus, unspecified; I82.411 Acute embolism and thrombosis of right femoral vein; R40.3 Persistent vegetative state; C78.7 Secondary malignant neoplasm of liver and intrahepatic bile duct; G40.909 Epilepsy, unspecified, not intractable, without status epilepticus; D63.8 Anemia in other chronic diseases classified elsewhere; E03.9 Hypothyroidism, unspecified; E83.42 Hypomagnesemia; E87.6 Hypokalemia; I10 Essential (primary) hypertension; I87.8 Other specified disorders of veins; N28.9 Disorder of kidney and ureter, unspecified; R13.10 Dysphagia, unspecified; Z51.5 Encounter for palliative care; Z86.011 Personal history of benign neoplasm of the brain; Z86.718 Personal history of other venous thrombosis and embolism; Z86.73 Personal history of transient ischemic attack (TIA), and cerebral infarction without residual deficits; Z98.890 Other specified postprocedural states; L98.9 Disorder of the skin and subcutaneous tissue, unspecified; L89.896 Pressure-induced deep tissue damage of other site
CPT/HCPCS: 36410; 36415; 70450-TC; 70470-TC; 70553-TC; 71045-TC; 71260-TC; 74018; 80048-TC; 80061-TC; 81000-TC; 82140-TC; 82247-TC; 82248-TC; 83605-TC; 83735-TC; 84100-TC; 85025-TC; 85610-TC; 87081-TC; 87086-TC; A4216; A6248; A6253; A6403; A9579; G0378; J0696; J1100; J1953; J3475; J3480; J7030; J7050; J7060; Q9967